=== PATIENT | female | born 1980 | race Caucasian/White ===

== ENCOUNTER → 2016-04-30 | Outpatient (REF) | payer OTHER ==
[~2016-04-30] MED LIST: ACET500C PO; IBUP600T26 PO; STUACAP PO
== END ==
LOC: M LAB REF 17:20
PROVIDERS: ATTEND Obstetrics & Gynecology
DX: Z12.4 Encounter for screening for malignant neoplasm of cervix (principal)

== ENCOUNTER 2016-10-17 09:58 | Emergency (ER) | payer MEDICAID, OTHER ==
[~2016-10-17] VITALS: Ht 157.5 cm; Wt 70.3 kg
[~2016-10-17 09:58] MED LIST changes: +IBUP-1022 PO; -IBUP600T26 PO
[2016-10-17] MEDS ORDERED: PROV100T25 PO (10:06)
[2016-10-17] MEDS ORDERED: KETOROLAC 60 MG/2 ML VIAL (J1885) IM ONE (11:00)
[2016-10-17] MEDS ORDERED: SKEL800T97 PO (11:25)
[2016-10-17 11:33] VITALS: BP 106/64
== END 2016-10-17 11:34 | disposition home or self-care (01) ==
LOC: M ED 10:48
DX: S23.3XXA Sprain of ligaments of thoracic spine, initial encounter (principal); F41.9 Anxiety disorder, unspecified; G47.419 Narcolepsy without cataplexy; E28.2 Polycystic ovarian syndrome; F17.210 Nicotine dependence, cigarettes, uncomplicated; X58.XXXA Exposure to other specified factors, initial encounter; Y92.89 Other specified places as the place of occurrence of the external cause; Y99.9 Unspecified external cause status; Y93.9 Activity, unspecified; Z79.899 Other long term (current) drug therapy
CPT/HCPCS: 96372; 99282; J1885

== ENCOUNTER 2016-12-31 20:57 | Emergency (ER) | payer MEDICAID ==
[~2016-12-31] VITALS: Ht 157.5 cm; Wt 68.2 kg
[2016-12-31 20:57] VITALS: BP 125/73
[~2016-12-31 20:57] MED LIST changes: +PROV100T25 PO; +SKEL800T97 PO
[2016-12-31] MEDS ORDERED: KEFL500C17 PO (23:29)
[2016-12-31] MEDS ORDERED: PYRI1TAB5 PO (23:29)
[2016-12-31] MEDS ORDERED: PHENAZOPYRIDINE 100 MG TAB PO ONE (23:30)
[2016-12-31] MEDS ORDERED: CEPHALEXIN 500 MG CAP PO ONE (23:30)
== END 2016-12-31 23:58 | disposition home or self-care (01) ==
LOC: M ED 20:57
DX: N39.0 Urinary tract infection, site not specified (principal); G89.29 Other chronic pain; M54.9 Dorsalgia, unspecified; F41.9 Anxiety disorder, unspecified; E28.2 Polycystic ovarian syndrome; G47.419 Narcolepsy without cataplexy; F17.210 Nicotine dependence, cigarettes, uncomplicated; Z79.899 Other long term (current) drug therapy; J30.9 Allergic rhinitis, unspecified

== ENCOUNTER → 2017-02-13 | Outpatient (REF) | payer MEDICAID ==
[~2017-02-13] MED LIST changes: +KEFL500C17 PO; +PYRI1TAB5 PO
== END ==
LOC: M LAB REF 21:40
PROVIDERS: ATTEND Physician Assistant
DX: R30.0 Dysuria (principal)

== ENCOUNTER 2017-08-10 21:32 | Emergency (ER) | payer MEDICAID ==
[2017-08-10] MEDS: IBUPROFEN 600 MG TAB PO (23:25)
[2017-08-10] MEDS: ALBUTEROL SULFATE 2.5 MG/0.5 ML INH NEB SOLN NEB (23:40)
[2017-08-11] MEDS ORDERED: LIDOCAINE 1% MDV 20ML VIAL As Ordered (00:20)
[2017-08-11] MEDS: cefTRIAXone SOD 1 GM VIAL (J0696) IM (00:29)
== END 2017-08-11 00:44 | disposition home or self-care (01) ==
LOC: M ED 08-11 00:44
DX: J18.9 Pneumonia, unspecified organism (principal); K21.9 Gastro-esophageal reflux disease without esophagitis; E28.2 Polycystic ovarian syndrome; J30.89 Other allergic rhinitis
CPT/HCPCS: J0696

== ENCOUNTER 2017-08-20 17:44 | Emergency (ER) | payer MEDICAID ==
[2017-08-20 18:17] LABS: BASO % 0.3 % (0.0-1.0); EOS % 0.1 % (0.0-3.0); HEMATOCRIT 43.7 % (36.0-47.0); HEMOGLOBIN 14.7 g/dl (12.0-15.5); IMMATURE GRANULOCYTE % 1.1 % (0-3.0); LYMPH # 2.2 10^3/uL (1.5-4.5); LYMPH % 14.2 % (24.0-44.0); MEAN CORPUSCULAR HEMOGLOBIN 29.8 pg (27.0-33.0); MEAN CORPUSCULAR HGB CONC 33.6 g/dl (32.0-36.5); MEAN CORPUSCULAR VOLUME 88.5 fl (80.0-96.0); MONO # 0.6 10^3/uL (0.0-0.8); MONO % 3.8 % (0.0-5.0); NEUTROPHILS # 12.2 10^3/uL (1.8-7.7); NEUTROPHILS % 80.5 % (36.0-66.0); PLATELET COUNT, AUTOMATED 429 10^3/uL (150-450); RED BLOOD COUNT 4.94 10^6/uL (4.00-5.40); RED CELL DISTRIBUTION WIDTH 12.7 % (11.5-14.5); WHITE BLOOD COUNT 15.2 10^3/uL (4.0-10.0)
[2017-08-20 18:35] LABS: KETONE, URINE AUTO RFX NEGATIVE (NEGATIVE); LEUKOCYTE ESTERASE UR AUTO RFX NEGATIVE (NEGATIVE); NITRITE, URINE AUTO RFX NEGATIVE (NEGATIVE); RBC, URINE AUTO RFX 2 /HPF (0-3); SPECIFIC GRAVITY UR AUTO RFX 1.003 (1.002-1.035); SQUAM EPITHELIAL CELL UR AURFX 0 /HPF (0-6); WBC, URINE AUTO RFX 0 /HPF (0-3)
[2017-08-20 19:05] LABS: ANION GAP 11 MEQ/L (8-16); BLOOD UREA NITROGEN 13 MG/DL (7-18); CALCIUM LEVEL 9.2 MG/DL (8.5-10.1); CARBON DIOXIDE LEVEL 25 MEQ/L (21-32); CHLORIDE LEVEL 107 MEQ/L (98-107); CREATININE FOR GFR 0.92 MG/DL (0.55-1.30); GLOMERULAR FILTRATION RATE > 60.0 (>60); GLUCOSE, FASTING 103 MG/DL (70-100); HCG, SERUM QUANTITATIVE < 1.0 MIU/ML; POTASSIUM SERUM 4.5 MEQ/L (3.5-5.1); SODIUM LEVEL 143 MEQ/L (136-145)
== END 2017-08-20 20:42 | disposition home or self-care (01) ==
LOC: M ED 17:44
DX: N92.0 Excessive and frequent menstruation with regular cycle (principal); J45.909 Unspecified asthma, uncomplicated; Z87.891 Personal history of nicotine dependence
CPT/HCPCS: 76801

== ENCOUNTER → 2017-09-21 | Outpatient (CLI) | payer MEDICAID | LOC: M RAD 09:31 | DX: N60.22 Fibroadenosis of left breast (principal); N60.21 Fibroadenosis of right breast | CPT/HCPCS: 77066 ==

== ENCOUNTER → 2017-12-10 | Outpatient (CLI) | payer MEDICAID ==
[2017-12-10 13:27] LABS: BASO % 0.2 % (0.0-1.0); EOS # 0.3 10^3/uL (0.0-0.50); EOS % 2.8 % (0.0-3.0); HEMATOCRIT 42.3 % (36.0-47.0); HEMOGLOBIN 13.9 g/dl (12.0-15.5); IMMATURE GRANULOCYTE % 1.2 % (0-3.0); LYMPH # 1.8 10^3/uL (1.5-4.5); LYMPH % 19.5 % (24.0-44.0); MEAN CORPUSCULAR HEMOGLOBIN 29.6 pg (27.0-33.0); MEAN CORPUSCULAR HGB CONC 32.9 g/dl (32.0-36.5); MONO # 0.6 10^3/uL (0.0-0.8); MONO % 6.5 % (0.0-5.0); NEUTROPHILS # 6.4 10^3/uL (1.8-7.7); NEUTROPHILS % 69.8 % (36.0-66.0); PLATELET COUNT, AUTOMATED 254 10^3/uL (150-450); RED CELL DISTRIBUTION WIDTH 13.2 % (11.5-14.5); WHITE BLOOD COUNT 9.1 10^3/uL (4.0-10.0)
[2017-12-10 14:54] LABS: HBsAg Prenatal NEGATIVE (NEGATIVE); HIV 1&2 SCREEN CENTAUR NEGATIVE (NEGATIVE); RUBELLA IgG QUALITATIVE IMMUNE (IMMUNE)
[2017-12-10 14:54] LABS: HEPATITIS C VIRUS ABY INDEX 0.1 INDEX (<0.8)
[2017-12-10 16:32] LABS: CHLAMYDIA DNA AMPLIFICATION NEGATIVE (NEGATIVE); GC DNA AMPLIFICATION NEGATIVE (NEGATIVE)
== END ==
LOC: M SMT 10:16
DX: Z34.81 Encounter for supervision of other normal pregnancy, first trimester (principal); Z3A.08 8 weeks gestation of pregnancy
CPT/HCPCS: 86762

== ENCOUNTER 2018-01-07 19:38 | Emergency (ER) | payer MEDICAID ==
[2018-01-07 21:13] LABS: BASO % 0.2 % (0.0-1.0); EOS # 0.2 10^3/uL (0.0-0.50); EOS % 1.9 % (0.0-3.0); HEMATOCRIT 38.4 % (36.0-47.0); HEMOGLOBIN 13.4 g/dl (12.0-15.5); IMMATURE GRANULOCYTE % 0.8 % (0-3.0); LYMPH # 1.9 10^3/uL (1.5-4.5); LYMPH % 17.1 % (24.0-44.0); MEAN CORPUSCULAR HEMOGLOBIN 30.1 pg (27.0-33.0); MEAN CORPUSCULAR HGB CONC 34.9 g/dl (32.0-36.5); MEAN CORPUSCULAR VOLUME 86.3 fl (80.0-96.0); MONO # 0.5 10^3/uL (0.0-0.8); MONO % 4.9 % (0.0-5.0); NEUTROPHILS # 8.2 10^3/uL (1.8-7.7); NEUTROPHILS % 75.1 % (36.0-66.0); PLATELET COUNT, AUTOMATED 254 10^3/uL (150-450); RED BLOOD COUNT 4.45 10^6/uL (4.00-5.40); RED CELL DISTRIBUTION WIDTH 13.2 % (11.5-14.5)
[2018-01-07 21:45] LABS: HCG, SERUM QUANTITATIVE 33874 MIU/ML
== END 2018-01-07 22:38 | disposition home or self-care (01) ==
LOC: M ED 19:38
DX: O20.0 Threatened abortion (principal); Z3A.12 12 weeks gestation of pregnancy; O99.331 Smoking (tobacco) complicating pregnancy, first trimester; F17.210 Nicotine dependence, cigarettes, uncomplicated; O99.511 Diseases of the respiratory system complicating pregnancy, first trimester; J30.89 Other allergic rhinitis
CPT/HCPCS: 76801

== ENCOUNTER → 2018-01-20 | Outpatient (CLI) | payer MEDICAID ==
[2018-01-20 14:03] LABS: CREATININE,RANDOM URINE 80.3 MG/DL
[2018-01-20 14:03] LABS: TOTAL PROTEIN,RANDOM URINE < 5.0 MG/DL (0.0-12.0)
[2018-01-20 17:50] LABS: HEMATOCRIT 41.6 % (36.0-47.0); HEMOGLOBIN 13.7 g/dl (12.0-15.5); MEAN CORPUSCULAR HEMOGLOBIN 29.6 pg (27.0-33.0); MEAN CORPUSCULAR HGB CONC 32.9 g/dl (32.0-36.5); MEAN CORPUSCULAR VOLUME 89.8 fl (80.0-96.0); PLATELET COUNT, AUTOMATED 272 10^3/uL (150-450); RED BLOOD COUNT 4.63 10^6/uL (4.00-5.40); RED CELL DISTRIBUTION WIDTH 13.5 % (11.5-14.5); WHITE BLOOD COUNT 12.2 10^3/uL (4.0-10.0)
[2018-01-20 17:51] LABS: ALT/SGPT 27 U/L (12-78); AST/SGOT 19 U/L (7-37); BILIRUBIN,TOTAL 0.3 MG/DL (0.2-1.0); CREATININE FOR GFR 0.58 MG/DL (0.55-1.30); GLOMERULAR FILTRATION RATE > 60.0 (>60); LDH LACTATE DEHYDROGENASE 171 U/L (84-246)
== END ==
LOC: M SMT 11:19
DX: O09.291 Supervision of pregnancy with other poor reproductive or obstetric history, first trimester (principal); Z3A.00 Weeks of gestation of pregnancy not specified
CPT/HCPCS: 84460

== ENCOUNTER 2018-02-19 16:01 | Emergency (ER) | payer MEDICAID | END 2018-02-19 18:26 | disposition home or self-care (01) | LOC: M ED 16:01 | DX: O99.89 Other specified diseases and conditions complicating pregnancy, childbirth and the puerperium (principal); M70.61 Trochanteric bursitis, right hip; K21.9 Gastro-esophageal reflux disease without esophagitis; G47.419 Narcolepsy without cataplexy; Z79.82 Long term (current) use of aspirin; J30.89 Other allergic rhinitis; F17.210 Nicotine dependence, cigarettes, uncomplicated; Z3A.19 19 weeks gestation of pregnancy | CPT/HCPCS: 99283 ==

== ENCOUNTER → 2018-02-22 | Outpatient (CLI) | payer MEDICAID | LOC: M RAD 09:50 | DX: Z34.82 Encounter for supervision of other normal pregnancy, second trimester (principal); Z36.89 Encounter for other specified antenatal screening; Z3A.19 19 weeks gestation of pregnancy | CPT/HCPCS: 76811 ==

== ENCOUNTER → 2018-02-24 | Outpatient (CLI) | payer MEDICAID ==
[2018-02-24 13:58] LABS: HEMATOCRIT 39.9 % (36.0-47.0); HEMOGLOBIN 13.1 g/dl (12.0-15.5); MEAN CORPUSCULAR HEMOGLOBIN 29.8 pg (27.0-33.0); MEAN CORPUSCULAR HGB CONC 32.8 g/dl (32.0-36.5); MEAN CORPUSCULAR VOLUME 90.9 fl (80.0-96.0); PLATELET COUNT, AUTOMATED 259 10^3/uL (150-450); RED BLOOD COUNT 4.39 10^6/uL (4.00-5.40); RED CELL DISTRIBUTION WIDTH 13.6 % (11.5-14.5)
[2018-02-24 14:20] LABS: ALBUMIN/GLOBULIN RATIO 0.88 (1.00-1.93); ALKALINE PHOSPHATASE 91 U/L (45-117); ALT/SGPT 20 U/L (12-78); AST/SGOT 13 U/L (7-37); BILIRUBIN,DIRECT < 0.1 MG/DL (0.0-0.2); BILIRUBIN,TOTAL 0.2 MG/DL (0.2-1.0); TOTAL PROTEIN 6.4 GM/DL (6.4-8.2)
[2018-02-27 00:06] LABS: ANTI PARVO VIRUS LEVEL IGG 7.5 index (0.0-0.8); ANTI PARVO VIRUS LEVEL IgM 0.2 index (0.0-0.8)
== END ==
LOC: M SMT 10:23
DX: O28.3 Abnormal ultrasonic finding on antenatal screening of mother (principal)
CPT/HCPCS: 80076

== ENCOUNTER → 2018-03-24 | Outpatient (CLI) | payer MEDICAID ==
[~2018-03-24] MED LIST changes: +ASPI81TA85 PO; +CEFD1CAP8 PO; +PRED20TA PO; +PRENTAB29 PO; +PROAAER10 INH; +ZITHTAB PO
[2018-03-24 13:20] LABS: ALT/SGPT 17 U/L (12-78); BILIRUBIN,TOTAL 0.3 MG/DL (0.2-1.0); CREATININE FOR GFR 0.57 MG/DL (0.55-1.30); GLOMERULAR FILTRATION RATE > 60.0 (>60); LDH LACTATE DEHYDROGENASE 154 U/L (84-246); URIC ACID 3.8 MG/DL (2.6-6.0)
[2018-03-24 13:42] LABS: TOTAL PROTEIN,RANDOM URINE 13.3 MG/DL (0.0-12.0)
== END ==
LOC: M SMT 11:02
PROVIDERS: ATTEND Obstetrics & Gynecology
DX: O16.2 Unspecified maternal hypertension, second trimester (principal)

== ENCOUNTER → 2018-04-21 | Outpatient (CLI) | payer MEDICAID ==
[2018-04-21 15:10] LABS: ALT/SGPT 17 U/L (12-78); BILIRUBIN,TOTAL 0.3 MG/DL (0.2-1.0); CREATININE FOR GFR 0.64 MG/DL (0.55-1.30); GLOMERULAR FILTRATION RATE > 60.0 (>60); URIC ACID 4.5 MG/DL (2.6-6.0)
[2018-04-21 15:20] LABS: TOTAL PROTEIN,RANDOM URINE 19.4 MG/DL (0.0-12.0)
[2018-04-21 15:22] LABS: LDH LACTATE DEHYDROGENASE 155 U/L (84-246)
== END ==
LOC: M SMT 11:07
PROVIDERS: ATTEND Advanced Practice Midwife
DX: O09.292 Supervision of pregnancy with other poor reproductive or obstetric history, second trimester (principal)

== ENCOUNTER → 2018-04-25 | Outpatient (CLI) | payer MEDICAID ==
[2018-04-25 13:26] LABS: HEMATOCRIT 37.2 % (36.0-47.0); HEMOGLOBIN 12.4 g/dl (12.0-15.5); MEAN CORPUSCULAR HEMOGLOBIN 29.7 pg (27.0-33.0); MEAN CORPUSCULAR HGB CONC 33.3 g/dl (32.0-36.5); MEAN CORPUSCULAR VOLUME 89.2 fl (80.0-96.0); PLATELET COUNT, AUTOMATED 241 10^3/uL (150-450); RED BLOOD COUNT 4.17 10^6/uL (4.00-5.40)
== END ==
LOC: M SMT 10:46
PROVIDERS: ATTEND Obstetrics & Gynecology
DX: O09.292 Supervision of pregnancy with other poor reproductive or obstetric history, second trimester (principal); Z3A.00 Weeks of gestation of pregnancy not specified

== ENCOUNTER → 2018-05-05 | Outpatient (CLI) | payer MEDICAID ==
--- NOTE | 2018-05-05 15:29 | REP ---
OB ULTRASOUND: Real-time sonographic evaluation of the gravid uterus is performed. There is a single living intrauterine gestation. The estimated gestational age is 29 weeks 4 days, EDC 07/17/2018. Today's measurements indicate appropriate growth. BPD 35 mm = 30 weeks 1 day, at the 58th percentile. HC 269 mm = 29 weeks 2 days, at the 44th percentile. AC 260 mm = 30 weeks 1 day, at the 59th percentile. Femur length 53 mm = 28 weeks 2 days, at the 21st percentile. HC/AC ratio 1.03 within normal range. Estimated weight 1400 gram, 39th percentile. heart rate 131 beats per minute. Amniotic fluid within normal limits. ALY 17.9 within normal range of 9.1 to 23.3. Biophysical profile score 8/8. SD ratio 3.23 and RI 0.69 within normal range. SEEN/GROSSLY UNREMARKABLE Lateral ventricles Yes Posterior fossa No Upper lip Yes Four-chamber heart No LVOT No RVOT No Stomach Yes Cord insertion Yes Three vessel cord Yes Kidneys Yes Bladder Yes Spine Yes position: Breech. Placenta: Posterior and fundal and grade 1 with no previa or abruption. Electronically Signed by Leonardo Núñez MD 05/05/2018 05:32 P
== END ==
LOC: M RAD 13:59
PROVIDERS: ATTEND Advanced Practice Midwife
DX: O09.293 Supervision of pregnancy with other poor reproductive or obstetric history, third trimester (principal)

== ENCOUNTER → 2018-05-17 | Outpatient (CLI) | payer MEDICAID ==
--- NOTE | 2018-05-17 12:20 | REP ---
Third trimester obstetric ultrasound for weekly biophysical profile: There is a single intrauterine gestation in a vertex presentation. The placenta is posterior. There is no placenta previa or abruptio. The placenta demonstrates grade 1 maturity. The heart rate is 145 beats per minute. The cervix measures 3.4 cm length. Amniotic fluid index is 20.9 (8.7 - 23.9). Gestational age by the first ultrasound during this gestation is 31 weeks 2 days/SUZANNE 07/17/2018. Gestational age by LMP is 31 weeks 2 days/SUZANNE 07/17/2018. biophysical profile: Breathing 2.0 Movement 2.0 Tone 2.0 AFV 2.0 Total 0.8 / 0.8 Umbilical artery Doppler assessment mid cord: S/D ratio 2.41 (2.30-3.30) Resistive Index 0.59 (0.59-0.75 Diastolic Velocity 1.35 (>10 cm/sec) Electronically Signed by Leonardo Padilla MD 05/17/2018 12:11 P
== END ==
LOC: M RAD 10:12
PROVIDERS: ATTEND Advanced Practice Midwife
DX: O09.293 Supervision of pregnancy with other poor reproductive or obstetric history, third trimester (principal)

== ENCOUNTER → 2018-05-24 | Outpatient (CLI) | payer MEDICAID ==
[~2018-05-24] MED LIST changes: +IBUP-1114 PO; +MAPA500T2 PO
--- NOTE | 2018-05-24 14:54 | REP ---
Clinical: Growth reevaluation. Comparison: 05/17/2018 . Findings: Examination demonstrates a single live intrauterine in breech presentation. motion is identified by technologist. Placenta is noted posterior and grade grade II without evidence for placenta previa or abruption. Amniotic fluid volume is normal. Cervix measures 3.7 cm in length and appears closed. No evidence for nuchal cord. Gestational age by LMP 32 weeks 2 days with SUZANNE 07/17/2018 . Gestational age by current measurements 32 weeks 5 days with SUZANNE 07/14/2018 . FHR equals 136 beats per minute. BPD 8.1 cm 32 weeks 4 days HC 99.8 cm 33 weeks 0 days AC 28.8 cm 32 weeks 6 days FL 6.2 cm 32 weeks 1 day HL 5.7 cm 33 weeks 0 days HC/AC ratio 1.03 Estimated weight 2010 grams ( 49th percentile). Amniotic fluid index: 20.3 cm Umbilical cord SD ratio: 2.54 Biophysical profile score: 8/8 Impression: Single live advanced gestation in breech presentation demonstrating appropriate interval growth. No gross abnormalities are identified. Electronically Signed by Kamlesh Noonan MD 05/24/2018 02:45 P
== END ==
LOC: M RAD 13:27
PROVIDERS: ATTEND Advanced Practice Midwife
DX: O09.293 Supervision of pregnancy with other poor reproductive or obstetric history, third trimester (principal); Z3A.32 32 weeks gestation of pregnancy

== ENCOUNTER 2018-06-01 03:57 | Inpatient (IN) | payer MEDICAID ==
[2018-06-01] VITALS (12 sets, daily range): BP systolic 99–139; BP diastolic 53–82
[~2018-06-01] VITALS: Ht 157.5 cm; Wt 89.0 kg
[~2018-06-01 03:57] MED LIST changes: -IBUP-1114 PO; -MAPA500T2 PO
[2018-06-01] MEDS ORDERED: LACTATED RINGER'S 1000 ML IV STA (05:08)
[2018-06-01] MEDS ORDERED: AZITHROMYCIN 250 MG TAB PO ONE (05:15)
--- NOTE | 2018-06-01 05:25 | NUR ---
L&D H&P HPI: 38 year old at 33+3 weeks estimated gestation. Expected date of confinement: 07/17/18. dated by LMP c/w first TM US. Presents today complaining of large loss of clear fluid around 0200 this AM. Denies vaginal bleeding or uterine contractions. Reports regular movement. course c/b : 1. History of stillborn at 35 weeks due to placental abruption/severe pre-eclampsia 2. GHTN 3. Smoker 4. Grand multiparity 5. AMA labs: Blood type A+, antibody screen negative, rubella immune, VDRL nonreactive , hepatitis B surface antigen negative, HIV negative, hepatitis C an tibody negative, GC/CT negative, aneuploidy/maternal serum screening: Panorama cfDNA Low risk XY, 1 hour glucose challenge test: 107, GBS unknown. Radiology/OB US: no anomalies or placental abnormalities detected. 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 No STI/gHSV OB history: x 6 Social history: 1/2 pack - pack/day. No drug use or EtOH Family history: DM , HTN, thyroid, Objective Vitals: Normotensive, normal heart rate, afebrile Heart: Regular rate and rhythm. No murmurs, rubs or gallops. Lungs: Clear to auscultation bilaterally. No wheezes, crackles, rales or rhonchi. Abdomen: Uterine fundal height consistent with dates. No guarding or rebound tenderness. Extremities: No clubbing, cyanosis or edema. Normal deep tendon reflexes. SSE: +pooling/grossly ruptured. +Nitrazine / +ferning Sterile vaginal exam: 2-3 cm, 50 %effacement, -3 station, cephalic US,molina: cephalic presentation confirmed External monitoring: heart rate category 1 Tocodynamometer: contractions not present Assessment/Plan 38 year old at 33+3 weeks gestation. Diagnosis: Premature Rupture of Membranes. No e/o IAI. Reassuring and maternal status. -Admit to labor and delivery - corticosteroids: Betamethasone 12mg IM q24h x 2 doses -Latency abx: Azithromycin 1g PO x 1, Ampicillin 2g IV q6h -Tocolysis PRN -External monitoring and tocodynamometer -GBS culture obtained; pending. -Timing of delivery: goal of 34+0 weeks. Deliver sooner for maternal or indications. Dr. Michael Serrato, DO, FACOG
[2018-06-01] MEDS: BETAMETHASONE SOLUSPAN 6MG/ML INJ 5ML (J0702) IM SCH (06:23)
[2018-06-01 06:25] LABS: HEMATOCRIT 36.9 % (36.0-47.0); HEMOGLOBIN 12.3 g/dl (12.0-15.5); MEAN CORPUSCULAR HEMOGLOBIN 30.1 pg (27.0-33.0); MEAN CORPUSCULAR HGB CONC 33.3 g/dl (32.0-36.5); MEAN CORPUSCULAR VOLUME 90.2 fl (80.0-96.0); PLATELET COUNT, AUTOMATED 209 10^3/uL (150-450); RED BLOOD COUNT 4.09 10^6/uL (4.00-5.40); WHITE BLOOD COUNT 10.1 10^3/uL (4.0-10.0)
[2018-06-01] MEDS: NIFEdipine 10 MG CAP PO SCH ×3 (08:04→16:00)
[2018-06-01] MEDS: AMPICILLIN SOD 2 GM in D5W MINI-BAG PLUS 100 ML IV SCH ×4 (11:30→23:10)
[2018-06-01] MEDS ORDERED: ACETAMINOPHEN 500 MG TAB PO PRN (16:30)
[2018-06-01] MEDS ORDERED: diphenhydrAMINE 50 MG CAP PO ONE (20:30)
[2018-06-02] VITALS (8 sets, daily range): BP systolic 96–129; BP diastolic 54–72
[2018-06-02] MEDS: BETAMETHASONE SOLUSPAN 6MG/ML INJ 5ML (J0702) IM SCH (05:34)
[2018-06-02] MEDS: AMPICILLIN SOD 2 GM in D5W MINI-BAG PLUS 100 ML IV SCH ×4 (05:34→23:59)
[2018-06-02] MEDS: diphenhydrAMINE 25 MG CAP PO PRN (23:59)
[2018-06-03] VITALS (21 sets, daily range): BP systolic 90–142; BP diastolic 50–76
[2018-06-03] MEDS: AMPICILLIN SOD 2 GM in D5W MINI-BAG PLUS 100 ML IV SCH ×4 (06:28→23:30)
[2018-06-03 06:58] LABS: HEMATOCRIT 29.7 % (36.0-47.0); HEMOGLOBIN 9.9 g/dl (12.0-15.5); MEAN CORPUSCULAR HEMOGLOBIN 30.6 pg (27.0-33.0); MEAN CORPUSCULAR HGB CONC 33.3 g/dl (32.0-36.5); MEAN CORPUSCULAR VOLUME 91.7 fl (80.0-96.0); PLATELET COUNT, AUTOMATED 198 10^3/uL (150-450); RED BLOOD COUNT 3.24 10^6/uL (4.00-5.40); WHITE BLOOD COUNT 10.3 10^3/uL (4.0-10.0)
--- NOTE | 2018-06-03 07:16 | NUR ---
HD#3 S: Doing well w/o complaints. Denies vaginal bleeding, ctx or abd pain O: vss, AF gen: well appearing abd: gravid, nttp A/P: 38 yo @ 33w5d with PPROM-stable s/p betamethasone - I reviewed risk and plan of care. All question answered Amparo Wahl MD
[2018-06-03] MEDS: LR 1,000 ML IV SCH ×2 (08:15→12:06)
[2018-06-03] MEDS ORDERED: CALCIUM CARBONATE 500 MG CHEW U/D PO PRN (14:15)
[2018-06-03] MEDS: FAMOTIDINE 20 MG TAB PO SCH ×2 (14:18→21:25)
[2018-06-03] MEDS: diphenhydrAMINE 25 MG CAP PO PRN (21:25)
[2018-06-04] VITALS (39 sets, daily range): BP systolic 93–151; BP diastolic 47–84
[2018-06-04] MEDS: LR 1,000 ML IV SCH ×2 (00:15→14:42)
[2018-06-04] MEDS: AMPICILLIN SOD 2 GM in D5W MINI-BAG PLUS 100 ML IV SCH (05:40)
--- NOTE | 2018-06-04 07:58 | NUR ---
Progress note S: Feels contractions every 10 minutes O: YZ=471/74 P=74 afebrile NAD Abd: NT, gravid FHt: Category I [place]: irregular cx: 2 cm/70%/-2 posterior moderate A/P 38 yo at 33 6/7 weeks with PPROM Pt has been on latency antibiotics Pt had multiple variable decelerations overnight, and appears to have contractions. Plan to move toward delivery today Stat Oxytocin Jacques Perez MD
[2018-06-04] MEDS ORDERED: OXYTOCIN DRIP 30 UNITS in APPROPRIATE DILUENT 1 EA IV SCH (08:00)
[2018-06-04] MEDS: FAMOTIDINE 20 MG TAB PO SCH (08:58)
[2018-06-04] MEDS ORDERED: FENTANYL 2MCG/ML ROPIVACAINE 0.2% IN 0.9% NACL 100ML IVBAG As Ordered ONE (12:18)
[2018-06-04] MEDS ORDERED: EPIDURAL/PCA KEYS XX PRN (13:15)
[2018-06-04] MEDS ORDERED: ePHEDrine SULFATE 25 MG/5 ML(5MG/ML) SYRINGE IV PRN (13:15)
[2018-06-04] MEDS ORDERED: diphenhydrAMINE INJ 50MG/ML VIAL (J1200) IV PRN (13:15)
[2018-06-04] MEDS ORDERED: REFRIGERATOR IV KEYS XX PRN (13:15)
[2018-06-04] MEDS ORDERED: EPIDURAL COMMENT XX SCH (13:15)
[2018-06-04] MEDS ORDERED: FENTANYL/ROPIVACAINE/NACL BAG 100 ML EPIDURAL SCH (13:15)
[2018-06-04] MEDS ORDERED: ONDANSETRON 4MG/2ML VIAL (J2405) IV PRN ×2 (13:15→18:15)
[2018-06-04] MEDS ORDERED: NALOXONE INJ 0.4 MG/1 ML VIAL (J2310) IV PRN (13:15)
[2018-06-04] MEDS ORDERED: LACTATED RINGER'S 1000 ML IV PRN (13:15)
[2018-06-04 18:14] LABS: CORD GAS ABE V -1.6; CORD GAS HCO3 V 22.1 MEQ/L; CORD GAS O2 SAT V 74.7 %; CORD GAS PCO2 V 34.8 mmHg; CORD GAS PH V 7.421 UNITS; CORD GAS PO2 V 29.5 mmHg; CORD GAS SBC V 22.6 MEQ/L; CORD GAS TCO2 V 23.2 MEQ/L
[2018-06-04] MEDS ORDERED: DIBUCAINE 1% OINTMENT 30GM TOP PRN (18:15)
[2018-06-04] MEDS ORDERED: RHOGAM 300 MCG (1500 IU) INJ (J2790) IM SCH (18:15)
[2018-06-04] MEDS ORDERED: METHYLERGONOVINE MALEATE 0.2 MG TAB PO PRN (18:15)
[2018-06-04] MEDS ORDERED: MEASLES,MUMPS,RUBELLA VACCINE INJ (MMR-II) (90707) SC SCH (18:15)
[2018-06-04] MEDS ORDERED: DOCUSATE SODIUM 100 MG CAP PO PRN (18:15)
[2018-06-04] MEDS ORDERED: OXYTOCIN DRIP 30 UNITS in APPROPRIATE DILUENT 1 EA IV ONE (18:15)
[2018-06-04] MEDS ORDERED: ACETAMINOPHEN 500 MG TAB PO PRN (18:15)
[2018-06-04] MEDS ORDERED: IBUPROFEN 800 MG TAB PO PRN (18:15)
[2018-06-04 18:16] LABS: CORD GAS ABE A -1.7; CORD GAS HCO3 A 22.9 MEQ/L; CORD GAS O2 SAT A 61.9 %; CORD GAS PCO2 A 38.8 mmHg; CORD GAS PH A 7.389 UNITS; CORD GAS PO2 A 24.1 mmHg; CORD GAS SBC A 22.1 MEQ/L; CORD GAS TCO2 A 24.1 MEQ/L
[2018-06-05 06:00] VITALS: BP 95/49
[2018-06-05] MEDS: PRENATAL VITAMINS CHEWABLE TABLET PO SCH (11:13)
[2018-06-05 18:36] VITALS: BP 122/69
[2018-06-06] MEDS: PRENATAL VITAMINS CHEWABLE TABLET PO SCH (08:47)
[2018-06-06 09:00] VITALS: BP 121/72
[2018-06-06] MEDS ORDERED: MAPA500T2 PO (10:18)
[2018-06-06] MEDS ORDERED: IBUP-1114 PO (10:18)
--- NOTE | 2018-06-06 14:25 | DN ---
DATE OF DELIVERY: 06/04/2018 PREDELIVERY DIAGNOSIS: 33 and 6/7 weeks gestation, premature rupture of membranes (PPROM), induction. POST DELIVERY DIAGNOSIS: Delivered. PROCEDURE: Spontaneous vaginal delivery. ASSISTED LIVING EXECUTIVE DIRECTOR: Dr. Jacques Perez ANESTHESIA: Epidural. ESTIMATED BLOOD LOSS: 100 mL. FINDINGS: 4 pound 12 ounce male infant, Apgars 8 and 9. DELIVERY SUMMARY: After a second stage consisting of 1 contraction, the patient had spontaneous delivery of a 4 pound 12 ounce male infant, Apgars 8 and 9, under epidural anesthesia. Arterial blood gas was 7.38, excess -1.7, venous blood gas 7.42, base excess -1.6. The cried and was handed to the mother. The cord was doubly clamped and cut. The placenta delivered spontaneously and appeared to be intact. There were no vaginal lacerations present. The patient received IV Pitocin immediately after delivery of the placenta. Sponge counts were correct.
== END 2018-06-06 12:25 | disposition home or self-care (01) | DRG 560 ==
LOC: M LDO 03:57 → M LDI 05:39 → M OBS 06-04 20:31
PROVIDERS: ADMIT Obstetrics & Gynecology; ATTEND Obstetrics & Gynecology
PROC: 10E0XZZ Delivery of Products of Conception, External Approach (ICD-10-PCS; principal; 2018-06-04)
DX: O42.013 Preterm premature rupture of membranes, onset of labor within 24 hours of rupture, third trimester (principal); O13.4 Gestational [pregnancy-induced] hypertension without significant proteinuria, complicating childbirth; Z37.0 Single live birth; Z3A.33 33 weeks gestation of pregnancy; F17.200 Nicotine dependence, unspecified, uncomplicated; O99.334 Smoking (tobacco) complicating childbirth; O09.523 Supervision of elderly multigravida, third trimester

== ENCOUNTER 2019-01-07 16:33 | Emergency (ER) | payer MEDICAID ==
[~2019-01-07] VITALS: Ht 157.5 cm; Wt 75.1 kg
[~2019-01-07 16:33] MED LIST changes: +IBUP-1114 PO; +MAPA500T2 PO
[2019-01-07 16:34] VITALS: BP 116/60
[2019-01-07] MEDS ORDERED: PROV100T25 PO (17:09)
[2019-01-07] MEDS ORDERED: MACR100C43 PO (17:41)
[2019-01-07] MEDS ORDERED: NITROFURANTOIN (MACROBID) 100 MG CAP PO ONE (17:45)
== END 2019-01-07 18:04 | disposition home or self-care (01) ==
LOC: M ED 16:33
DX: N30.00 Acute cystitis without hematuria (principal); J02.9 Acute pharyngitis, unspecified; G47.29 Other circadian rhythm sleep disorder; F17.200 Nicotine dependence, unspecified, uncomplicated; Z79.899 Other long term (current) drug therapy; Z91.09 Other allergy status, other than to drugs and biological substances; Z87.440 Personal history of urinary (tract) infections

== ENCOUNTER → 2019-03-02 | Outpatient (REF) | payer MEDICAID ==
[~2019-03-02] MED LIST changes: +MACR100C43 PO
[2019-03-02 18:07] LABS: INFLUENZA A AMPLIFICATION NEGATIVE (NEGATIVE); INFLUENZA B AMPLIFICATION NEGATIVE (NEGATIVE)
== END ==
LOC: M LAB REF 16:22
PROVIDERS: ATTEND Physician Assistant
DX: R50.9 Fever, unspecified (principal); M79.10 Myalgia, unspecified site

== ENCOUNTER → 2019-03-26 | Outpatient (REF) | payer MEDICAID | LOC: M LAB REF 13:40 | PROVIDERS: ATTEND Physician Assistant Medical | DX: R30.0 Dysuria (principal) ==

== ENCOUNTER → 2019-06-02 | Outpatient (CLI) | payer MEDICAID ==
[2019-06-02 13:33] LABS: HEMATOCRIT 39.4 % (36.0-47.0); HEMOGLOBIN 12.9 g/dl (12.0-15.5); MEAN CORPUSCULAR HEMOGLOBIN 29.5 pg (27.0-33.0); MEAN CORPUSCULAR HGB CONC 32.7 g/dl (32.0-36.5); MEAN CORPUSCULAR VOLUME 90.2 fl (80.0-96.0); PLATELET COUNT, AUTOMATED 270 10^3/uL (150-450); RED BLOOD COUNT 4.37 10^6/uL (4.00-5.40); WHITE BLOOD COUNT 9.4 10^3/uL (4.0-10.0)
[2019-06-02 13:42] LABS: ALT/SGPT 30 U/L (12-78); BILIRUBIN,TOTAL 0.6 MG/DL (0.2-1.0); CREATININE FOR GFR 0.59 MG/DL (0.55-1.30); GLOMERULAR FILTRATION RATE > 60.0 (>60); LDH LACTATE DEHYDROGENASE 146 U/L (84-246); URIC ACID 4.1 MG/DL (2.6-6.0)
[2019-06-02 13:55] LABS: HEPATITIS B SURFACE ANTIGEN NEGATIVE (NEGATIVE); RUBELLA IgG QUALITATIVE IMMUNE (IMMUNE)
[2019-06-02 14:23] LABS: HEPATITIS C VIRUS ABY INDEX < 0.0 INDEX (<0.8)
[2019-06-02 14:24] LABS: HIV 1&2 SCREEN CENTAUR NEGATIVE (NEGATIVE)
[2019-06-02 15:25] LABS: CHLAMYDIA DNA AMPLIFICATION NEGATIVE (NEGATIVE); GC DNA AMPLIFICATION NEGATIVE (NEGATIVE)
== END ==
LOC: M LABDRWAD 09:40
PROVIDERS: ATTEND Advanced Practice Midwife
DX: O09.521 Supervision of elderly multigravida, first trimester (principal); Z3A.00 Weeks of gestation of pregnancy not specified

== ENCOUNTER → 2019-06-21 | Outpatient (CLI) | payer MEDICAID | LOC: M WHC 10:19 | PROVIDERS: ATTEND Obstetrics & Gynecology | DX: O09.529 Supervision of elderly multigravida, unspecified trimester (principal); Z53.9 Procedure and treatment not carried out, unspecified reason ==

== ENCOUNTER → 2019-08-01 | Outpatient (CLI) | payer MEDICAID ==
--- NOTE | 2019-08-01 10:26 | REP ---
REASON FOR EXAM: anatomy. Multiple ultrasonographic images of the gravid uterus show a single living intrauterine gestation in variable positions. Doppler interrogation of the heart shows the heart rate of 140 beats per minute. The placenta is posterior and not low lying. The subjective amniotic fluid volume is within normal limits. The cervix measures 3.4 cm in length and is closed. BPD 4.5 cm = 19 weeks 4 days HC 16.9 cm = 19 weeks 4 days AC 13.4 cm = 18 weeks 6 days FL 3.0 cm = 19 weeks 1 day The estimated weight is 271 grams, which is at the 16th percentile for 20- -week-0-day gestational age. The anatomic structures visualized and unremarkable are as follows: Thalami, cavum septum pellucidum, cerebellum, spine, urinary bladder, cord insertion, stomach, four-chamber heart, left ventricular outflow tract, and upper lip. Structures suboptimally visualized were as follows. Only one kidneys was well imaged, the cerebral ventricles were seen to be mildly dilated. Three-vessel umbilical cord cannot be confirmed. IMPRESSION: Single living intrauterine gestation as described above with an estimated gestational age of 19 weeks 1 day via composite criteria and an estimated date of delivery of 12/25/2019. Followup is recommended to visualize both kidneys, re-evaluate the cerebral ventricles, and confirm a three-vessel umbilical cord.
== END ==
LOC: M WHC 08:05
PROVIDERS: ATTEND Obstetrics & Gynecology
DX: O09.529 Supervision of elderly multigravida, unspecified trimester (principal)

== ENCOUNTER → 2019-08-18 | Outpatient (CLI) | payer MEDICAID ==
--- NOTE | 2019-08-18 14:12 | REP ---
OB ULTRASOUND: Real-time sonographic evaluation of the gravid uterus performed and compared to prior studies. There is a single intrauterine gestation. The estimated gestational age is 22 weeks 3 days, EDC 12/19/2019. Today's measurements indicate appropriate growth. Biometry and Growth: BPD 54 mm = 22 weeks 2 days, 47th percentile HC 198 mm = 22 weeks 0 days, 37th percentile AC 170 mm = 22 weeks 0 days, 40th percentile FL 37 mm = 20 weeks 5 days, 34th percentile HC/AC ratio 1.17 within normal range 1.04 to 1.23 Estimated weight 459 grams 30th percentile. Choroid plexus is visualized. There is a questionable separation within the left choroid plexus possibly indicating a bifid choroid plexus. Lateral ventricles are not dilated. Upper lip, stomach, cord insertion, three-vessel cord, kidneys and bladder are visualized and are grossly unremarkable. Cervical length: Closed and measures 2.7 cm in length. heart rate: 157 beats per minute. position: Variable Placenta: Posterior and grade 1 with no previa or abruption. Amniotic fluid: Within normal limits.
== END ==
LOC: M WHC 10:49
PROVIDERS: ATTEND Advanced Practice Midwife
DX: O09.522 Supervision of elderly multigravida, second trimester (principal); Z3A.22 22 weeks gestation of pregnancy

== ENCOUNTER 2019-08-28 21:58 | Outpatient (CLI) | payer MEDICAID ==
[~2019-08-28] VITALS: Ht 157.5 cm; Wt 81.7 kg
[2019-08-28] MEDS ORDERED: ASPI81TA85 PO (22:11)
[2019-08-28 22:26] VITALS: BP 119/63
--- NOTE | 2019-08-29 12:40 | HPE ---
DATE OF SERVICE: 08/28/2019 Katerin is a 39-year-old 8, para 5-2-0-6, at 23-6/7 weeks' gestation with estimated date of confinement (EDC) of 12/19/2019 based on last menstrual period and confirmed by first-trimester ultrasound. She presents to labor and delivery today with report of pelvic pressure. She denies contractions, vaginal bleeding, and leakage of fluid. The fetus has been active. care was [facility] at [facility] in the first trimester. course complicated by advanced maternal age, smoking throughout , a history of preeclampsia with intrauterine (IUFD), history of premature rupture of membranes (PPROM) at 33 weeks. OBSTETRIC HISTORY: 02/14/1999: 41 weeks' gestation, 7 pound 9 ounce female, vaginal delivery complicated by anemia. August 2000: 40 weeks, 5 pound 10 ounce male, spontaneous vaginal delivery complicated by oligohydramnios. June 2005: 36-3/7 weeks, spontaneous vaginal delivery uncomplicated delivery. September 2006: 39 weeks, 6 pound 9 ounce male, vaginal delivery, no complications. June 2010: 40 weeks, 8 pound 2 ounce male, spontaneous vaginal delivery, no complications. December 2015: 35-3/7 weeks' gestation, 3 pound 8 ounce male, intrauterine demise, preeclampsia, placental abruption. May 2018: 33 weeks and 6 days, 4 pound 12 ounce male, spontaneous vaginal delivery, premature rupture of membranes, gestational hypertension. OBSTETRIC LABORATORIES: A+, antibody screen negative, rapid plasma reagin (RPR) negative, hepatitis B surface antigen negative, hepatitis C antibody nonreactive, HIV nonreactive, gonorrhea and chlamydia negative. PAST MEDICAL HISTORY: Narcolepsy, low back pain, neck pain, anxiety, esophageal reflux. SURGERIES: Cholecystectomy. FAMILY HISTORY: Diabetes, heart attack, esophageal cancer, and hypertension. SOCIAL HISTORY: The patient is . She is a smoker, approximately ten cigarettes per day. She denies alcohol and drug use. No history of sexually-transmitted infections. She denies history of abuse: physical, sexual, and emotional. ALLERGIES: No known drug allergies. CURRENT MEDICATIONS: - vitamin OBJECTIVE: Temperature 97.9, pulse 89, respiration 18, blood pressure (BP) 119/63. Alert and oriented times three. She is in no apparent distress. heart rate is 140 with appropriate for gestational age. No pattern of contractions. Sterile speculum examination: Cervix is long, thick, closed, no bleeding noted. Sterile vaginal examination: Long, thick, and closed. ASSESSMENT: Intrauterine at 23-6/7 weeks. heart rate appropriate for gestational age. Normal discomforts of . Not in labor. PLAN: Discharge the patient home. She is to keep her next scheduled appointment at [facility] on 09/07/[facility]. I did review signs and symptoms of active labor, danger signs, and access to care. The patient has had all of her questions answered and is reassured by this visit today.
== END 2019-08-28 22:55 | disposition home or self-care (01) ==
LOC: EEVIPCON 21:58 → M LDO 21:58
PROVIDERS: ATTEND Advanced Practice Midwife

== ENCOUNTER → 2019-09-15 | Outpatient (CLI) | payer MEDICAID ==
[~2019-09-15] MED LIST changes: -ASPI81TA85 PO; +ASPI81TA86 PO; +DOCU100C16 PO; +IBUP80TA PO; +PERCOCET PO; +PNV1TAB6 PO
--- NOTE | 2019-09-15 14:51 | REP ---
OBSTETRIC SONOGRAPHY: HISTORY: Limited OB sonography. Check cervical length. Comparison study August 18, 2019. FINDINGS: Scanning demonstrates a viable single intrauterine gestation in a cephalic lie. motion is observed and heart rate is recorded at 142 beats per minute. A posterior grade 1 placenta is seen without evidence of previa or abruption. Amniotic fluid is subjectively normal. ALY is normal at 15.5 cm. Closed cervical length visualized transvaginally at 2.9 cm. There is a small 1.8 cm heterogeneous area in the lower uterine segment visualized transvaginally. Question small fibroid.
== END ==
LOC: M WHC 09:24
PROVIDERS: ATTEND Advanced Practice Midwife
DX: O09.292 Supervision of pregnancy with other poor reproductive or obstetric history, second trimester (principal)

== ENCOUNTER → 2019-09-26 | Outpatient (REF) | payer MEDICAID ==
[~2019-09-26] MED LIST changes: +ASPI81TA85 PO; -ASPI81TA86 PO; -DOCU100C16 PO; -IBUP80TA PO; -PERCOCET PO; -PNV1TAB6 PO
[2019-09-26 13:33] LABS: HEMATOCRIT 36.8 % (36.0-47.0); HEMOGLOBIN 12.2 g/dl (12.0-15.5); MEAN CORPUSCULAR HEMOGLOBIN 30.5 pg (27.0-33.0); MEAN CORPUSCULAR HGB CONC 33.2 g/dl (32.0-36.5); PLATELET COUNT, AUTOMATED 265 10^3/uL (150-450); WHITE BLOOD COUNT 11.7 10^3/uL (4.0-10.0)
== END ==
LOC: M PLALAB 08:57
PROVIDERS: ATTEND Advanced Practice Midwife
DX: O09.522 Supervision of elderly multigravida, second trimester (principal)

== ENCOUNTER → 2019-10-05 | Outpatient (CLI) | payer MEDICAID ==
[~2019-10-05] MED LIST changes: -ASPI81TA85 PO; +ASPI81TA86 PO; +DOCU100C16 PO; +IBUP80TA PO; +PERCOCET PO; +PNV1TAB6 PO
--- NOTE | 2019-10-05 11:12 | REP ---
OB ULTRASOUND BIOPHYSICAL PROFILE: Real-time sonographic evaluation of the gravid uterus is performed. There is a single living intrauterine gestation. The estimated gestational age is 29 weeks 2 days, EDC 12/19/2019. Cervix is closed and measures 3.6 cm in length. heart rate 147 beats per minute. Amniotic fluid within normal limits, ALY 12.7, normal range 9.1 to 23.2. Biophysical profile score 8/8. position is vertex. Placenta fundal and grade 1 with no previa or abruption. S/D ratio of the umbilical artery 3.0.
== END ==
LOC: M WHC 08:54
PROVIDERS: ATTEND Specialist
DX: O16.3 Unspecified maternal hypertension, third trimester (principal); Z3A.29 29 weeks gestation of pregnancy

== ENCOUNTER → 2019-10-12 | Outpatient (CLI) | payer MEDICAID ==
--- NOTE | 2019-10-12 11:57 | REP ---
REASON FOR EXAM: Hypertension. Obtain biophysical profile. Multiple ultrasonographic images of the gravid uterus show a single living intrauterine gestation in the transverse head to the maternal left position. Doppler interrogation of the heart shows a heart rate of 156 beats per minute. The cervix measures 3 cm in length and is closed. The placenta is fundal and not low-lying. The subjective amniotic fluid volume is within normal limits. The calculated amniotic fluid index is 14.3 with an expected range 8.9 to 23.5. biophysical profile score is 2 for breathing, 2 for movement, 2 for tone, and 2 for amniotic fluid volume giving a some total of 8/8. Doppler interrogation of the umbilical artery shows an A/B ratio of 2.6. This is within the normal range. IMPRESSION: Limited OB ultrasound as described above.
== END ==
LOC: M WHC 10:24
PROVIDERS: ATTEND Specialist
DX: O16.3 Unspecified maternal hypertension, third trimester (principal); Z3A.00 Weeks of gestation of pregnancy not specified

== ENCOUNTER → 2019-10-19 | Outpatient (CLI) | payer MEDICAID | LOC: M WHC 09:02 | PROVIDERS: ATTEND Specialist | DX: O16.3 Unspecified maternal hypertension, third trimester (principal); Z3A.00 Weeks of gestation of pregnancy not specified ==

== ENCOUNTER → 2019-10-27 | Outpatient (CLI) | payer MEDICAID ==
--- NOTE | 2019-12-15 13:12 | REP ---
ULTRASOUND FOR BIOPHYSICAL PROFILE IN A PATIENT WITH GESTATIONAL HYPERTENSION Delay in reporting results from hospital computer malfunction as result of a malware attack. FINDINGS: There is a single intrauterine gestation in a cephalic presentation. The placenta is posterior with grade 1 maturity without previa and without abruptio. BIOPHYSICAL PROFILE: motion 2.0, breathing 2.0, tone 2.0, amniotic fluid 2.0. Total BPP score 8/8. heart rate is 140 beats per minute. Cervix measures 3.1 cm in length. The patients estimated date of confinement (EDC) is reportedly 12/19/2019. No further evaluation is requested or performed at this time. [facility]
== END ==
LOC: M WHC 12:32
PROVIDERS: ATTEND Specialist
DX: O16.3 Unspecified maternal hypertension, third trimester (principal)

== ENCOUNTER → 2019-11-01 | Outpatient (CLI) | payer MEDICAID ==
--- NOTE | 2019-12-21 10:38 | REP ---
LIMITED OBSTETRIC SONOGRAPHY HISTORY: Hypertension. History of demise. For biophysical profile. This report was delayed due to a protracted episode of network disruption experienced by this facility. FINDINGS: Scanning through the gravid uterus demonstrates a single living intrauterine cephalic fetus. Placenta is posterior grade 2 without evidence of placenta previa or abruption. Amniotic fluid is subjectively normal. ALY is normal at 14.9 cm. heart rate is recorded at 152 beats per minute. Closed cervical length is measured transabdominally at 3.1 cm. biophysical profile score is 8 out of a possible 8. S/D ratio in the umbilical artery by Doppler is normal at 2.3. Sagittal images of the spine: Left-sided stomach, kidneys and bladder, three-vessel cord, abdominal wall cord insertion, and facial structures are seen and are unremarkable. MTDD
== END ==
LOC: M WHC 17:00
PROVIDERS: ATTEND Specialist
DX: O16.3 Unspecified maternal hypertension, third trimester (principal); Z3A.00 Weeks of gestation of pregnancy not specified

== ENCOUNTER → 2019-11-08 | Outpatient (CLI) | payer MEDICAID ==
--- NOTE | 2019-12-21 10:36 | REP ---
OB ULTRASOUND INDICATION: Gestational hypertension. TECHNIQUE: Real time sonographic evaluation of gravid uterus performed. FINDINGS: There is a single intrauterine gestation. The estimated gestational age is 34 weeks, 1 day, EDC 12/19/2019. Today's measurements indicate less than expected growth. BPD = 81 mm = 32 weeks, 4 days = 9th percentile. HC = 295 mm 32 weeks, 4 days = less than 2nd percentile. AC = 288 mm = 32 weeks, 6 days = 19th percentile. FL = 60 mm = 31 weeks, 2 days = less than 2nd percentile. Estimated weight 1943 grams is at the 7th percentile. heart rate is 143 beats per minute. Amniotic fluid appears within normal limits. ALY is 14.45. S/D ratio of umbilical artery is 2.2. Biphasic profile score is 8/8. Cervix is closed, measured 3.0 in length. position is vertex. Placenta is posterior and grade 2. MTDD
== END ==
LOC: M WHC 16:47
PROVIDERS: ATTEND Specialist
DX: O16.3 Unspecified maternal hypertension, third trimester (principal); Z3A.34 34 weeks gestation of pregnancy

== ENCOUNTER → 2019-11-15 | Outpatient (CLI) | payer MEDICAID ==
--- NOTE | 2019-12-21 10:41 | REP ---
OBSTETRIC SONOGRAPHY HISTORY: Limited obstetric sonography for biophysical profile. IUGR. History of prior stillborn. FINDINGS: Scanning through the gravid uterus demonstrates a viable single intrauterine gestation in a cephalic lie. Posterior grade 1 placenta is seen without evidence of previa or abruptions. Amniotic fluid is subjectively normal. ALY is normal at 16.3 cm. Biophysical profile score is 8 out of a possible 8. S/D ratio in the umbilical cord artery by Doppler is normal at 2.4. heart rate is recorded at 147 beats per minute. MTDD
== END ==
LOC: M WHC 14:24
PROVIDERS: ATTEND Obstetrics & Gynecology
DX: O09.299 Supervision of pregnancy with other poor reproductive or obstetric history, unspecified trimester (principal); Z3A.00 Weeks of gestation of pregnancy not specified

== ENCOUNTER → 2019-11-17 | Outpatient (CLI) | payer MEDICAID ==
--- NOTE | 2019-12-26 09:38 | REP ---
OBSTETRIC ULTRASOUND FOR BIOPHYSICAL PROFILE AND UMBILICAL CORD DOPPLER ASSESSMENT Delay in reporting results from hospital computer system malfunction from malware/ ransomware. FINDINGS: There is a single intrauterine gestation in a cephalic presentation. The placenta is posterior, grade 2, without previa and without abruptio. heart rate is 135 beats per minute. The amniotic fluid volume subjectively is normal. The amniotic fluid index is 15.67. BIOPHYSICAL PROFILE: motion 2 breathing 2 tone 2 Amniotic fluid volume 2 Total BPP 8/8 The cervix measures 3.4 cm in length. The Doppler S/D ratio of the umbilical artery is 2.6. The resistive index is 0.62. No further evaluation is requested or performed at this time. [facility]
== END ==
LOC: M WHC 10:54
PROVIDERS: ATTEND Obstetrics & Gynecology
DX: Z34.80 Encounter for supervision of other normal pregnancy, unspecified trimester (principal)

== ENCOUNTER → 2019-11-20 | Outpatient (CLI) | payer MEDICAID ==
--- NOTE | 2019-12-21 10:42 | REP ---
LIMITED OBSTETRICAL ULTRASOUND: HISTORY: well being. COMPARISON: 11/17/19 TECHNIQUE: Transabdominal obstetrical ultrasound with color Doppler evaluation. FINDINGS: Ultrasound examination demonstrates a single live advanced gestation in cephalic presentation. motion was identified by technologist. The cervix measures 3.1 cm in length and appears closed. The placenta is identified posteriorly, grade 2 and without placenta previa or abruption. Amniotic fluid volume is normal. Gestational age by current measurements is 33 weeks 5 days. heart rate is 144 beats per minute. Estimated weight is 2269 grams (7th percentile). ALY is 15.4 cm. Biophysical profile score is 8/8. IMPRESSION: Single live advanced gestation in cephalic presentation. Decreased estimated weight at 7th percentile. Biophysical profile score equals 8/8. MTDD
== END ==
LOC: M WHC 08:55
PROVIDERS: ATTEND Obstetrics & Gynecology
DX: Z34.82 Encounter for supervision of other normal pregnancy, second trimester (principal)

== ENCOUNTER → 2019-11-22 | Outpatient (REF) | payer MEDICAID | LOC: M WHC 13:00 | PROVIDERS: ATTEND Obstetrics & Gynecology | DX: O09.513 Supervision of elderly primigravida, third trimester (principal); Z3A.00 Weeks of gestation of pregnancy not specified ==

== ENCOUNTER → 2019-11-24 | Outpatient (CLI) | payer MEDICAID ==
--- NOTE | 2019-12-25 09:16 | REP ---
LIMITED OB ULTRASOUND: OBTAIN BIOPHYSICAL PROFILE FINDINGS: Multiple ultrasonographic images of the gravid uterus show a single living intrauterine gestation in the cephalic presentation. The placenta is posterior and not low lying. Doppler interrogation of the heart shows a heart rate of 138 beats per minute. Doppler interrogation of the umbilical artery shows an A/B ratio of 2.5. The subjective amniotic fluid volume is within normal limits. The calculated amniotic fluid index is 17.3, which is within the normal range. biophysical profile scores: motion 2 breathing 2 tone 2 Amniotic fluid volume 2 Total 11/03 IMPRESSION: Limited obstetric ultrasound as described above. MTDD
== END ==
LOC: M WHC 08:31
PROVIDERS: ATTEND Obstetrics & Gynecology
DX: O09.299 Supervision of pregnancy with other poor reproductive or obstetric history, unspecified trimester (principal); Z3A.00 Weeks of gestation of pregnancy not specified

== ENCOUNTER 2019-11-27 16:33 | Inpatient (IN) | payer MEDICAID ==
[~2019-11-27] VITALS: Ht 157.5 cm; Wt 80.2 kg
[~2019-11-27 16:33] MED LIST changes: -DOCU100C16 PO; -IBUP80TA PO; -PERCOCET PO; -PNV1TAB6 PO
[2019-11-27 16:57] VITALS: BP 117/70
[2019-11-27] MEDS ORDERED: PNV1TAB6 PO (17:05)
[2019-11-27] MEDS ORDERED: LR 1,000 ML IV SCH ×2 (17:29→23:45)
[2019-11-27] MEDS ORDERED: LACTATED RINGER'S 1000 ML IV STA (17:29)
[2019-11-27 17:38] VITALS: BP 115/63
--- NOTE | 2019-11-27 17:38 | HPEPDOC ---
Obstetrical History & Physical General Date of Admission Nov 27, 2019 at 17:18 Primary Care Physician: MARTINEZ JEAN CNM History of Present Illness Katerin is a 39-year-old female who is a at 36.6 weeks gestation with an SUZANNE of 12/19/19 based off of her LMP and consistent with her first trimester ultrasound. She initiated care in her first trimester with [facility]. Her has been complicated by being advanced maternal age, history of labor, narcolepsy, history of stillbirth at 35 weeks due to placental abruption, patient being a smoker, preeclampsia, and recently diagnosed IUGR with growth in the 7%. She presents to L&D with complaints of leaking of clear fluid that started at 1530 today. She reports some scant bloody show that is pink/brown and active movements. Chief Complaint: LOF, pre-term Information Provided By: Patient Age: 39 : 8 Term: 4 Pre-term: 3 Abortions: 0 Livin Care Care: Good Care Dating Final EDC: Dec 19, 2019 Final EDC by: LMP LMP: Mar 14, 2019 EGA at Admission: 36.6 Antepartum Course Diagnos(e)s IUGR AMA PROM Smoker History of preeclampsia History of stillbirth-placental abruption History of delivery Height (inches): 62 Pre- weight (lbs.): 167 Admission Weight (lbs.): 176 Change in Weight (lbs.): 9 Past Medical History Past Obstetrical History #1: Past Obstetrical History: Primgravida Gestation: 41 Type of Delivery: Spontaneous Vaginal Del. (01/1999) Sex of : Female (7 lbs 9 oz) Complications: No Past Obstetrical History #2: Past Obstetrical History: Multigravida Gestation: 40 Type of Delivery: Spontaneous Vaginal Del. (08/2000) Sex of Infant: Male (5 lbs 10 oz) Complications: Yes (oligohydramnios) Past Obstetrical History #3: Past Obstetrical History: Multigravida Gestation: 36.3 Type of Delivery: Spontaneous Vaginal Del. (06/2005) Sex of : Male (5 lbs 9 oz) Complications: Yes (IUGR ) Past Obstetrical History #4: Past Obstetrical History: Multigravida Gestation: 39 Type of Delivery: Spontaneous Vaginal Del. (09/2006) Sex of : Male (6 lbs 9 oz) Complications: No Past Obstetrical History #5: Past Obstetrical History: Multigravida Gestation: 40 Type of Delivery: Spontaneous Vaginal Del. (06/2010) Sex of : Male (8 lbs 2 oz) Complications: No Past Obstetrical History #6: Past Obstetrical History: Multigravida Gestation: 35.3 Type of Delivery: Spontaneous Vaginal Del. (12/2015) Sex of : Male (3 lbs 8 oz) Complications: Yes (stillbirth related to placental abruption and preeclampsia) Past Obstetrical History #7: Past Obstetrical History: Multigravida Date of Delivery: Jun 04, 2018 Gestation: 33.6 Type of Delivery: Spontaneous Vaginal Del. Sex of Infant: Male (4 lbs 12 oz) Complications: Yes (PPROM, GHTN) LEATHER LACER History: Human papillomavirus(HPV) Past Medical History Medical History Narcolepsy Surgical History: Gallbladder Family History Significant Family History: Cancer, Diabetes, Heart disease, Hypertension Social History Marital Status: Single Family situation: Spouse/partner home Psychosocial History: Anxiety * Smoker: current smoker Alcohol: Denies Drugs: denies Allergies Coded Allergies: ENVIROMENTAL (Verified Allergy, Unknown, 12/31/16) Medications Scheduled Aspirin (Aspir 81) 81 Mg Tablet.dr, 1 TAB PO DAILY for pain Vit,Calc76/Iron/Folic (Pnv 29-1 Tablet) 1 Each Tablet, 1 TAB PO DAILY Physical Examination Physical Examination GENERAL: Alert and oriented times three. Poor dental health. ABDOMEN: Gravid and non-tender to touch. Soft to palpation. FETUS: Is vertex (VTX) by sterile vaginal examination (SVE). HEART RATE: Regular rate and rhythm. LUNGS: Clear to auscultation (CTA) bilaterally. No use of accessory muscles. EXTREMITIES: No edema. No clonus. Deep tendon reflexes (DTRs) +2 PERINEUM: SSE: copious amount of clear fluid in the vaginal canal with open os and hair visualized. Laboratory Data [facility] Laboratory Tests 2 11/27/19 17:31: Serology Scanned Report Hepatitis B Testing Pertinent Laboratoy Data Blood Type: A+ RBC Antibody Screen: Negative HIV: Negative Hepatitis B: Negative Hepatitis C: Negative Rapid Plasma Reagin: Nonreactive Rubella: Immune Chlamydia/Gonorrhea: Negative Group B Streptococcus: Negative Glucose Tolerance Test: 131 Anatomy Ultrasound Ultrasound Date: Nov 20, 2019 Placenta Location: Posterior Normal Anatomy: Yes Placenta Previa: No Estimated Weight (grams): 2269 Vaginal Examination Dilation: 5 cm Effacement: other (75%) Station: -3 Cervical Consistency: Soft Cervical Position: Anterior Presentation: Cephalic presentation Position: Vertex (occiput) Assessment Heart Rate (FHR): 135 Variability: Moderate Accelerations: Positive Decelerations: None Tocometer Contractions: Yes Frequency: irregular Multi-drug resistant Organism: No history of MDRO Assessment/Plan Assessment IUP at 36.6 weeks gestation PROM GBS negative Category I FHR tracing Advanced maternal age Plan Admit to L&D for premature rupture of membranes at 36.6 weeks gestation. OOB ad vinh. Diet: clear liquid diet. Patient may order a regular diet to eat after delivery. . Group B Streptococcus (GBS) negative. No prophylactic treatment needed. Labs and intravenous (IV) per unit protocol. Anesthesia consult per patient's request. Lactated Ringers (LR): Bolus 800 mL prior to epidural, then at 125 mL/hr. Anticipate active labor as patient is already 5 cm and ruptured. Consider IV Pitocin at midnight if not delivered by that time. C-S as appropriate. MARTINEZ JEAN CNM Nov 27, 2019 17:38
[2019-11-27 18:22] VITALS: BP 109/64
[2019-11-27 18:53] LABS: HEMATOCRIT 32.7 % (36.0-47.0); HEMOGLOBIN 11.2 g/dl (12.0-15.5); MEAN CORPUSCULAR HEMOGLOBIN 31.3 pg (27.0-33.0); MEAN CORPUSCULAR HGB CONC 34.3 g/dl (32.0-36.5); MEAN CORPUSCULAR VOLUME 91.3 fl (80.0-96.0); PLATELET COUNT, AUTOMATED 224 10^3/uL (150-450); RED BLOOD COUNT 3.58 10^6/uL (4.00-5.40); WHITE BLOOD COUNT 15.5 10^3/uL (4.0-10.0)
--- NOTE | 2019-11-27 21:24 | IPNPDOC ---
Obstetrical Progress Note Date of Service Nov 27, 2019 Subjective Patient reports she only feels a few contractions. Objective Vital Signs Date Time Temp Pulse Resp B/P (MAP) Pulse Ox O2 Delivery O2 Flow Rate FiO2 11/27/19 18:22 97.8 77 18 109/64 (79) Assessment Heart Rate (FHR): 145 Variability: Moderate Accelerations: Positive Decelerations: None Heart Rate Tracing: Category I Tocometer Contractions: Yes Frequency: irregular Assessment and Plan Age: 39 Status: Reassuring Group B Streptococcus: Negative Additional Comments After examining patient the head was not able to be felt on vaginal exam ination, which was easily accessible and visually seen with SVE and SSE. Bedside ultrasound shows fetus is now transverse. Dr. Hdz notified. His recommendation is either a primary section or an attempt at and ECV due to this being patient's 8th delivery. Reviewed options with patient including risks, benefits and alternatives. She desires to try an ECV first. Reviewed r ecommendation for epidural prior to ECV. Anesthesia notified. MARTINEZ JEAN CNM Nov 27, 2019 21:24
[2019-11-27] MEDS ORDERED: FENTANYL 2MCG/ML ROPIVACAINE 0.2% IN 0.9% NACL 100ML IVBAG As Ordered ONE (21:34)
[2019-11-27] MEDS ORDERED: BICITRA 30ML SOLN UDC As Ordered ONE (22:07)
[2019-11-27] MEDS ORDERED: ceFAZolin 2 GM/D5W 50 ML IV BAG (J0690 PER 500MG) As Ordered ONE (22:07)
[2019-11-27] MEDS ORDERED: ceFAZolin SOD 2 GM in IV 1 EA IV ONE (22:15)
[2019-11-27] MEDS ORDERED: BICITRA 30ML SOLN UDC PO ONE (22:15)
--- NOTE | 2019-11-27 22:33 | IPNPDOC ---
Text Note Date of Service The patient was seen on 11/27/19. NOTE Patient has decided to decline the ECV after discussing it further and discu ssing it with her mother and wants to do a primary section with a tubal ligation. Risks, benefits, and alternatives reviewed with patient. Dr. Hdz notified of plan of care. Anesthesia and neonatology notified of change in plan. VS,Fishbone, I+O VS, Fishbone, I+O Laboratory Tests 11/27/19 18:00 Vital Signs Date Time Temp Pulse Resp B/P (MAP) Pulse Ox O2 Delivery O2 Flow Rate FiO2 11/27/19 18:22 97.8 77 18 109/64 (79) MARTINEZ JEAN CNM Nov 27, 2019 22:33
[2019-11-27] MEDS ORDERED: diphenhydrAMINE 50MG/ML VIAL (J1200) IV PRN (22:46)
[2019-11-27] MEDS ORDERED: NALOXONE INJ 0.4MG/1ML VIAL (J2310 PER 1MG) IV PRN ×2 (22:46)
[2019-11-27] MEDS ORDERED: NALBUPHINE HCL 10 MG/ML AMP (J2300) IV PRN (22:46)
[2019-11-27] MEDS ORDERED: METOCLOPRAMIDE INJ 10MG/2ML VIAL (J2765 PER 1) IV PRN (22:46)
[2019-11-27] MEDS ORDERED: ONDANSETRON 4MG/2ML VIAL IV PRN ×2 (22:46→23:45)
[2019-11-27] MEDS ORDERED: MORPHINE PRES-FREE INJ 10 MG/10 ML VIAL (J2274) As Ordered ONE (22:53)
[2019-11-27] MEDS ORDERED: OXYTOCIN INJ 10 UNITS/ML VIAL (J2590) As Ordered ONE (22:53)
[2019-11-27] MEDS ORDERED: OXYTOCIN DRIP 30 UNITS in IV 1 EA IV SCH (23:42)
[2019-11-27] MEDS ORDERED: MEPERIDINE INJ 25 MG/ML VIAL (J2175) IV PRN (23:45)
[2019-11-27] MEDS ORDERED: MOM 30ML SUSPENSION UDC PO PRN (23:45)
[2019-11-27] MEDS ORDERED: KETOROLAC 30 MG/ML 1ML VIAL IV PRN (23:45)
[2019-11-27] MEDS ORDERED: fentaNYL 100 MCG/2 ML INJECTION (J3010) IV PRN (23:45)
[2019-11-27] MEDS ORDERED: PERCOCET 5MG/325MG TAB PO PRN ×2 (23:45)
[2019-11-27] MEDS ORDERED: RHOGAM 300 MCG (1500 IU) INJ (J2790) IM SCH (23:45)
[2019-11-27] MEDS ORDERED: MEASLES,MUMPS,RUBELLA VACCINE INJ (MMR-II) (90707) SC SCH (23:45)
[2019-11-27 23:51] LABS: CORD GAS PCO2 A 37.7 mmHg; CORD GAS PH A 7.377 UNITS
[2019-11-27 23:52] LABS: CORD GAS HCO3 A 21.7 MEQ/L; CORD GAS O2 SAT A 86.4 %; CORD GAS PO2 A 38.6 mmHg; CORD GAS SBC A 21.7 MEQ/L; CORD GAS TCO2 A 22.8 MEQ/L
[2019-11-27 23:53] LABS: CORD GAS PCO2 V 56.9 mmHg; CORD GAS PH V 7.28 UNITS
[2019-11-27 23:54] LABS: CORD GAS ABE V -1.5; CORD GAS HCO3 V 26.1 MEQ/L; CORD GAS PO2 V 21.5 mmHg; CORD GAS TCO2 V 27.9 MEQ/L
[2019-11-27 23:55] LABS: CORD GAS O2 SAT V 48.2 %; CORD GAS SBC V 22.1 MEQ/L
[2019-11-28] VITALS (10 sets, daily range): BP systolic 91–110; BP diastolic 50–64
[2019-11-28] MEDS: IBUPROFEN 800 MG TAB PO SCH ×3 (03:51→17:56)
[2019-11-28 07:18] LABS: HEMATOCRIT 35.5 % (36.0-47.0); HEMOGLOBIN 11.7 g/dl (12.0-15.5); MEAN CORPUSCULAR HEMOGLOBIN 30.7 pg (27.0-33.0); MEAN CORPUSCULAR VOLUME 93.2 fl (80.0-96.0); PLATELET COUNT, AUTOMATED 232 10^3/uL (150-450); RED BLOOD COUNT 3.81 10^6/uL (4.00-5.40); WHITE BLOOD COUNT 17.6 10^3/uL (4.0-10.0)
[2019-11-28] MEDS ORDERED: BOOSTRIX/ADACEL VACCINE (DIPHTH/PERTUSS/ACELL/TETANUS) 0.5ML SYR IM ONE (09:00)
[2019-11-28] MEDS: PRENATAL VITAMINS CHEWABLE TABLET PO SCH (09:00)
[2019-11-28] MEDS: DOCUSATE SODIUM 100 MG CAP PO SCH ×2 (09:00→19:54)
--- NOTE | 2019-11-28 09:32 | IPNPDOC ---
Progress Note Date of Service: Nov 28, 2019 Day#: 1 Progress Note SUBJECT: Katerin is a 39-year-old female who presented with PROM at 36.6 weeks gestation. She was found to be grossly ruptured and in cephalic presentation. After 2-3 hours after another vaginal exam she was found to be oblique then transverse. She was given the options for ECV or primary section. Patient decided on a primary section with a tubal ligation. Her ceballos catheter was removed. She has ambulated without difficulty. Katerin does report some nausea but has been able to tolerate oral fluids and a regular diet. She is and supplementing with formula. OBJECTIVE: VITAL SIGNS: Within normal limits, afebrile. Alert and oriented times three. Does not appear to be in any distress. Breath sounds clear to auscultation. No use of accessory muscles. Heart rate: appropriate profusion. Abdomen: Fundus firm at U. Pressure dressing is intact with no drainage present on dressing. Minimal lochia. ASSESSMENT: Day 1 postoperative from primary section with tubal ligation PLAN: 1. Continue supportive nursing care. 2. Ambulate today. 3. Once patient has voided her IV fluid may be discontinued. 4. May shower later tonight. 5. Anticipate potential discharge tomorrow. VS, I&O, 24H, [facility] Vital Signs/I&O Vital Signs Date Time Temp Pulse Resp B/P (MAP) Pulse Ox O2 Delivery O2 Flow Rate FiO2 11/28/19 05:00 97.7 69 16 101/55 (70) 92 Room Air I&O- Last 24 Hours up to 6 AM 11/28/19 05:59 Intake Total 440 ml Output Total 850 ml Balance -410 ml Laboratory Data 24H LABS Laboratory Tests 2 11/27/19 17:31: Serology Scanned Report Hepatitis B Testing 11/27/19 18:00: Nucleated Red Blood Cells % (auto) 0.0, Syphilis Serology NONREACTIVE 11/27/19 22:59: Cord Arterial Blood pH 7.377, Cord Arterial Blood PCO2 37.7, Cord Arterial Blood PO2 38.6, Cord Arterial Blood HCO3 21.7, Cord Arterial Blood Total CO2 22.8, Cord Arterial Blood Base Excess -3.0, Cord Arterial Base Excess (Standard 21.7, Cord Arterial Bld Oxygen Saturation 86.4, Cord Venous Blood pH 7.280, Cord Venous Blood PCO2 56.9, Cord Venous Blood PO2 21.5, Cord Venous Blood HCO3 26.1, Cord Venous Blood Total CO2 27.9, Cord Venous Base Excess (Actual) -1.5, Cord Venous Base Excess (Standard) 22.1, Cord Venous Blood Oxygen Saturation 48.2 11/28/19 06:10: Nucleated Red Blood Cells % (auto) 0.0 CBC/BMP Laboratory Tests 11/27/19 18:00 11/28/19 06:10 MARTINEZ JEAN CNM Nov 28, 2019 09:32
[2019-11-28] MEDS ORDERED: LR 500 ML IV ONE (17:45)
[2019-11-28] MEDS ORDERED: CALCIUM CARBONATE 500 MG CHEW U/D PO PRN (18:00)
[2019-11-29 02:00] VITALS: BP 101/52
[2019-11-29] MEDS: IBUPROFEN 800 MG TAB PO SCH ×2 (02:35→10:40)
[2019-11-29 06:00] VITALS: BP 111/56
[2019-11-29] MEDS ORDERED: INFLUENZA QUADRIVALENT PF VACCINE 0.5ML SYRINGE IM ONE (09:00)
[2019-11-29] MEDS: DOCUSATE SODIUM 100 MG CAP PO SCH (09:03)
[2019-11-29] MEDS: PRENATAL VITAMINS CHEWABLE TABLET PO SCH (09:03)
[2019-11-29 10:00] VITALS: BP 125/70
--- NOTE | 2019-11-29 10:01 | IPNPDOC ---
Progress Note Date of Service: Nov 29, 2019 Day#: 2 Progress Note POD 2 SUBJECT: Katerin is a 39yo s/p uncomplicated PLTCS with BTL at 36w6d when she presented with PROM and unstable lie that converted to breech presentation before onset of labor. Her was complicated by AMA, history of prior labor, narcolepsy, history of stillbirth at 35 weeks due to placental abruption, tobacco use, prior preeclampsia, and recently diagnosed IUGR with growth in the 7%ile. She is doing well /post-op day # 2. She has been ambulating, voiding spontaneously without issue and tolerating regular diet. Breast feeding without issue. Reports lochia is like a normal period. Pain very well controlled. She is highly desirous of discharge today. Denies f/c/n/v/CP/SOB. OBJECTIVE: VITAL SIGNS: Within normal limits, afebrile. Alert and oriented times three. Abdomen: Fundus firm at U-2. Soft, appropriately tender to palpation. Pfannenstiel incision is clean/dry/intact with overlying steri strips Extremities: no edema of BLE, no pain with palpation of calves Labs: -pre-op H/H: 11.2/32.7 -post-op H/H: 11.7/35.5 ASSESSMENT: Katerin is a 39yo s/p uncomplicated PLTCS with BTL at 36w6d when she presented with PROM and unstable lie that converted to breech presentation before onset of labor, doing well POD 2. Vitals within normal limits, afebrile, hemodynamically stable with no evidence of infection. PLAN: 1. Discharge to home today. 2. Percocet and Motrin for pain. Regular diet. 3. Encouraged breast feeding and ambulation and use of IS 4. Remove steri strips in 7 days, keep incision clean and dry. Ok to shower pat dry after. Vaginal rest/no heavy lifting 6 weeks. 5. Incision check visit in 2 weeks in clinic. 6. Discussed return precautions at length. Shahnaz Weaver MD VS, I&O, 24H, [facility] Vital Signs/I&O Vital Signs Date Time Temp Pulse Resp B/P (MAP) Pulse Ox O2 Delivery O2 Flow Rate FiO2 11/29/19 06:00 97.6 82 18 111/56 (74) 97 Room Air I&O- Last 24 Hours up to 6 AM 11/29/19 06:00 Output Total 1255 ml Balance -1255 ml Shahnaz Weaver MD Nov 29, 2019 10:01
--- NOTE | 2019-11-29 10:06 | DS.PDOC ---
Discharge Summary General Date of Admission Nov 27, 2019 at 17:18 Date of Discharge Nov 29, 2019 Discharge Summary PROCEDURES PERFORMED DURING STAY: primary low transverse section and bilateral tubal ligation ADMITTING DIAGNOSES: 1. PPROM at 36w6d, unstable lie DISCHARGE DIAGNOSES: 1. PPROM at 36w6d, unstable lie that converted to breech presentation prior to onset of labor COMPLICATIONS/CHIEF COMPLAINT: LABOR. HISTORY OF PRESENT ILLNESS/HOSPITAL COURSE: Katerin is a 39yo s/p uncomplicated PLTCS with BTL at 36w6d when she presented with PROM and unstable lie that converted to breech presentation before onset of labor, doing well POD 2. At time of discharge, vitals within normal limits, afebrile, hemodynamically stable with no evidence of infection. Her was complicated by AMA, history of prior labor, narcolepsy, history of stillbirth at 35 weeks due to placental abruption, tobacco use, prior preeclampsia, and recently diagnosed IUGR with growth in the 7%ile. DISCHARGE MEDICATIONS: Please see below. ALLERGIES: Please see below. PHYSICAL EXAMINATION ON DISCHARGE: VITAL SIGNS: Within normal limits, afebrile. Alert and oriented times three. Abdomen: Fundus firm at U-2. Soft, appropriately tender to palpation. Pfannenstiel incision is clean/dry/intact with overlying steri strips Extremities: no edema of BLE, no pain with palpation of calves LABORATORY DATA: Please see below. -pre-op H/H: 11.2/32.7 -post-op H/H: 11.7/35.5 DISPOSITION: home DISCHARGE PLAN/INSTRUCTIONS: 1. Discharge to home today. 2. Percocet and Motrin for pain. Regular diet. 3. Encouraged breast feeding and ambulation and use of IS 4. Remove steri strips in 7 days, keep incision clean and dry. Ok to shower pat dry after. Vaginal rest/no heavy lifting 6 weeks. 5. Incision check visit in 2 weeks in clinic. 6. Discussed return precautions at length. DISCHARGE CONDITION: Stable TIME SPENT ON DISCHARGE: Greater than 20 minutes. Shahnaz Weaver MD Vital Signs/I&Os Vital Signs Date Time Temp Pulse Resp B/P (MAP) Pulse Ox O2 Delivery O2 Flow Rate FiO2 11/29/19 06:00 97.6 82 18 111/56 (74) 97 Room Air I&O- Last 24 Hours up to 6 AM 11/29/19 06:00 Output Total 1255 ml Balance -1255 ml Discharge Medications Scheduled Aspirin (Aspir 81) 81 Mg Tablet.dr, 1 TAB PO DAILY for pain, (Reported) Vit,Calc76/Iron/Folic (Pnv 29-1 Tablet) 1 Each Tablet, 1 TAB PO DAILY, (Reported) Allergies Coded Allergies: ENVIROMENTAL (Verified Allergy, Unknown, 12/31/16) Shahnaz Weaver MD Nov 29, 2019 10:06
[2019-11-29] MEDS ORDERED: PERCOCET PO (10:35)
[2019-11-29] MEDS ORDERED: DOCU100C16 PO (10:35)
[2019-11-29] MEDS ORDERED: IBUP80TA PO (10:35)
[2019-11-29] MEDS ORDERED: BOOSTRIX/ADACEL VACCINE (DIPHTH/PERTUSS/ACELL/TETANUS) 0.5ML SYR IM ONE (11:00)
--- NOTE | 2019-12-18 13:49 | RO ---
DATE OF OPERATION: 11/27/2019 BRIEF HISTORY: Marcella is a 39-year-old female who presented at 36-6/7 weeks gestation with spontaneous rupture of membranes and labor. She was found to have a transverse presentation and after extensive counseling, the patient decided to proceed with a primary section. The patient was also a multiparous young lady who desired permanent tubal sterilization. PREOPERATIVE DIAGNOSES: * Intrauterine at 36-6/7 week's gestation with spontaneous rupture of membranes and labor. * Transverse presentation, desired primary section. * Desires permanent tubal sterilization. POSTOPERATIVE DIAGNOSES: * Intrauterine at 36-6/7 week's gestation with spontaneous rupture of membranes and labor. * Transverse presentation, desired primary section. * Desires permanent tubal sterilization. PROCEDURES: * Primary low transverse section. * Bilateral salpingectomies. ANESTHESIA: Spinal. SURGEON: Claudio Hdz DO TENSION WORKER: Nisreen Denton CNM COMPLICATIONS: None. ESTIMATED BLOOD LOSS: 500 mL. FINDINGS: Live female in lucia breech position. 8/8 with weight 5 pounds 4 ounces. Normal-appearing tubes and ovaries. PROCEDURE: After obtaining informed consent, the patient was taken to the operating room where spinal anesthetic was found to be adequate. She was then draped and prepped in the usual sterile fashion in a supine position. At this point, a Pfannenstiel incision was made. This was carried down to the fascia. The fascia was incised in midline fashion and carried through laterally. The superior aspect was fascia was then grasped with through the scope, clamped and tented off and dissected off the rectus muscle sharply. The inferior aspect was dissected off in its normal fashion. Rectus muscle severed in midline fashion. Peritoneum was identified and peritoneal cavity was entered bluntly. Superior and inferior dissection of the peritoneum was then done with good visualization of the bladder. At this point, a Mobius skin retractor was placed. A low transverse uterine incision was made. The was delivered in atraumatic fashion with mild bulb suction. Cord doubly clamped and cut, and handed over to the awaiting warmer. Cord blood and cord gas was sent. Placenta removed manually. Uterus cleared of all clots and debris, and the uterine incision was then repaired in two separate layers of 0 Vicryl sutures. All superficial bleeders coagulated. After closure of the uterus, attention turned to the fallopian tube where the fimbriated ends were identified, and both ends were then clamped with two large Nadine's. Using the Bovie, the tubes were removed entirely and the area was then suture ligated using 3-0 chromic suture. The opposite side was done in a similar fashion. Pelvis completely irrigated with normal saline. Attention turned to the peritoneum which was closed using 2-0 chromic in a running fashion. The fascia closed in two separate segments with 0 Vicryl sutures and the skin was reapproximated in subcuticular fashion using 3-0 Vicryl on a Amadeo. Steri-Strips placed. The patient tolerated the procedure well. She was then transferred to the recovery room in stable condition. PEPE
--- NOTE | 2019-12-20 10:02 | RO ---
DATE OF OPERATION: 11/27/2019 BRIEF HISTORY: Marcella is a 39-year-old female who presented at 36-6/7 weeks gestation with spontaneous rupture of membranes and labor. She was found to have a transverse presentation and after extensive counseling, the patient decided to proceed with a primary section. The patient was also a multiparous young lady who desired permanent tubal sterilization. PREOPERATIVE DIAGNOSES: 1. Intrauterine at 36-6/7 week's gestation with spontaneous rupture of membranes and labor. 2. Transverse presentation, desired primary section. 3. Desires permanent tubal sterilization. POSTOPERATIVE DIAGNOSES: 1. Intrauterine at 36-6/7 week's gestation with spontaneous rupture of membranes and labor. 2. Transverse presentation, desired primary section. 3. Desires permanent tubal sterilization. PROCEDURES: 1. Primary low transverse section. 2. Bilateral salpingectomies. ANESTHESIA: Spinal. SURGEON: Claudio Hdz DO TREATMENT SUPERVISOR: Nisreen Denton CNM COMPLICATIONS: None. ESTIMATED BLOOD LOSS: 500 mL. FINDINGS: Live female in lucia breech position. 8/8 with weight 5 pounds 4 ounces. Normal-appearing tubes and ovaries. DESCRIPTION OF PROCEDURE: After obtaining informed consent, the patient was taken to the operating room where spinal anesthetic was found to be adequate. She was then draped and prepped in the usual sterile fashion in a supine position. At this point, a Pfannenstiel incision was made. This was carried down to the fascia. The fascia was incised in midline fashion and carried through laterally. The superior aspect was fascia was then grasped with through the scope, clamped and tented off and dissected off the rectus muscle sharply. The inferior aspect was dissected off in its normal fashion. Rectus muscle severed in midline fashion. Peritoneum was identified and peritoneal cavity was entered bluntly. Superior and inferior dissection of the peritoneum was then done with good visualization of the bladder. At this point, a Mobius skin retractor was placed. A low transverse uterine incision was made. The infant was delivered in atraumatic fashion with mild bulb suction. Cord doubly clamped and cut, and infant handed over to the awaiting warmer. Cord blood and cord gas was sent. Placenta removed manually. Uterus cleared of all clots and debris, and the uterine incision was then repaired in two separate layers of 0 Vicryl sutures. All superficial bleeders coagulated. After closure of the uterus, attention turned to the fallopian tube where the fimbriated ends were identified, and both ends were then clamped with two large Nadine's. Using the Bovie, the tubes were removed entirely and the area was then suture ligated using 3-0 chromic suture. The opposite side was done in a similar fashion. Pelvis completely irrigated with normal saline. Attention turned to the peritoneum which was closed using 2- 0 chromic in a running fashion. The fascia closed in two separate segments with 0 Vicryl sutures and the skin was reapproximated in subcuticular fashion using 3-0 Vicryl on a Amadeo. Steri-Strips placed. The patient tolerated the procedure well. She was then transferred to the recovery room in stable condition. PEPE
== END 2019-11-29 11:30 | disposition home or self-care (01) | DRG 540 ==
LOC: M LDO 16:33 → M LDI 17:18 → M OBS 11-28 01:15
PROVIDERS: ADMIT Advanced Practice Midwife; ATTEND Advanced Practice Midwife
PROC: 0UB70ZZ Excision of Bilateral Fallopian Tubes, Open Approach (ICD-10-PCS; 2019-11-27)
PROC: 10D00Z1 Extraction of Products of Conception, Low, Open Approach (ICD-10-PCS; principal; 2019-11-27 22:10)
DX: O60.14X0 Preterm labor third trimester with preterm delivery third trimester, not applicable or unspecified (principal); Z37.0 Single live birth; Z3A.36 36 weeks gestation of pregnancy; O09.523 Supervision of elderly multigravida, third trimester; F17.200 Nicotine dependence, unspecified, uncomplicated; O99.334 Smoking (tobacco) complicating childbirth; Z87.51 Personal history of pre-term labor; O36.5930 Maternal care for other known or suspected poor fetal growth, third trimester, not applicable or unspecified; Z30.2 Encounter for sterilization; O42.013 Preterm premature rupture of membranes, onset of labor within 24 hours of rupture, third trimester

== ENCOUNTER → 2019-11-27 | Outpatient (CLI) | payer MEDICAID ==
--- NOTE | 2019-12-25 09:17 | REP ---
LIMITED OBSTETRICAL ULTRASOUND FOR BIOPHYSICAL PROFILE CLINICAL: History of stillborn for biophysical profile. TECHNIQUE: Transabdominal obstetrical ultrasound with color Doppler evaluation. FINDINGS: Ultrasound examination demonstrates single live intrauterine in cephalic presentation. motion was identified by technologist. heart rate equals 161 beats per minute. Biophysical profile score 8/8. Placenta noted posteriorly and grade 2 without evidence for placenta previa or abruption. Amniotic fluid volume is normal. ALY equals 12.8 cm. Cervix measures 2.9 cm in length and appears closed. Umbilical artery S/D ratio 2.7. IMPRESSION: Single live intrauterine in cephalic presentation. Biophysical profile score equals 8/8. Amniotic fluid volume normal. MTDD
== END ==
LOC: M WHC 09:33
PROVIDERS: ATTEND Obstetrics & Gynecology
DX: O09.299 Supervision of pregnancy with other poor reproductive or obstetric history, unspecified trimester (principal); Z3A.00 Weeks of gestation of pregnancy not specified

== ENCOUNTER → 2022-01-19 | Outpatient (CLI) | payer MEDICAID, OTHER ==
[~2022-01-19] MED LIST changes: -CEFD1CAP8 PO; +CEFD300C41 PO; +DOCU100C16 PO; +IBUP80TA PO; +PERCOCET PO; +PNV1TAB6 PO
[2022-01-19 17:41] LABS: BASO # 0.1 10^3/uL (0.0-0.2); BASO % 0.6 % (0.0-1.0); EOS # 0.5 10^3/uL (0.0-0.5); EOS % 4.4 % (0.0-3.0); HEMATOCRIT 43.6 % (36.0-47.0); HEMOGLOBIN 14.2 g/dl (12.0-15.5); LYMPH # 4.1 10^3/uL (1.5-5.0); LYMPH % 37.5 % (24.0-44.0); MEAN CORPUSCULAR HEMOGLOBIN 29.5 pg (27.0-33.0); MEAN CORPUSCULAR HGB CONC 32.6 g/dl (32.0-36.5); MEAN CORPUSCULAR VOLUME 90.6 fl (80.0-96.0); MONO # 0.6 10^3/uL (0.0-0.8); MONO % 5.2 % (2.0-8.0); NEUTROPHILS # 5.7 10^3/uL (1.5-8.5); NEUTROPHILS % 51.9 % (36.0-66.0); PLATELET COUNT, AUTOMATED 306 10^3/uL (150-450); RED BLOOD COUNT 4.81 10^6/uL (4.00-5.40)
[2022-01-19 18:25] LABS: ALBUMIN 3.8 GM/DL (3.2-5.2); ALT/SGPT 22 U/L (12-78); BILIRUBIN,TOTAL 0.4 MG/DL (0.2-1.0); BLOOD UREA NITROGEN 9 MG/DL (7-18); C REACTIVE PROTEIN QUANTITATIV 0.34 MG/DL (0.00-0.30); CARBON DIOXIDE LEVEL 26 MEQ/L (21-32); CHLORIDE LEVEL 106 MEQ/L (98-107); CHOLESTEROL LEVEL 149 MG/DL (<200); CHOLESTEROL RISK RATIO 3.465 (<5); GLOMERULAR FILTRATION RATE > 60.0 (>58); GLUCOSE, FASTING 87 MG/DL (70-100); HDL CHOLESTEROL 43 MG/DL (>40); LDL CHOLESTEROL 87 MG/DL (<100); NON-HDL-C 106 MG/DL; POTASSIUM SERUM 4.3 MEQ/L (3.5-5.1); SODIUM LEVEL 140 MEQ/L (136-145); THYROID STIMULATING HORMONE 0.725 uIU/ML (0.358-3.740); TOTAL PROTEIN 7.1 GM/DL (6.4-8.2); TRIGLYCERIDES LEVEL 96 MG/DL (<150)
[2022-01-19 18:57] LABS: APPEARANCE, URINE MANUAL HAZY (CLEAR); COLOR, URINE MANUAL YELLOW (YELLOW)
[2022-01-19 19:00] LABS: BILIRUBIN, URINE MANUAL NEGATIVE (NEGATIVE); BLOOD URINE MANUAL NEGATIVE (NEGATIVE); GLUCOSE, URINE (UA) MANUAL NEGATIVE (NEGATIVE); KETONE, URINE MANUAL NEGATIVE (NEGATIVE); LEUKOCYTE ESTERASE, URINE MAN TRACE (NEGATIVE); NITRITE, URINE MANUAL POSITIVE (NEGATIVE); PROTEIN, URINE MANUAL NEGATIVE (NEGATIVE); UROBILINOGEN, URINE MANUAL NORMAL (NORMAL)
[2022-01-19 19:05] LABS: TOTAL 25(OH) VITAMIN D 18.8 NG/ML (30.0-100.0)
[2022-01-19 19:06] LABS: VITAMIN B12 LEVEL 684 PG/ML (247-911)
[2022-01-19 20:13] LABS: BACTERIA, URINE LARGE AMOUNT; HYALINE CAST, URINE NONE SEEN /lpf (0-1); RBC, URINE NONE SEEN /hpf (0-3); SQUAMOUS EPITHELIAL CELL URINE MOD AMOUNT /hpf (SMALL AMT)
== END ==
LOC: M PLALAB 15:10
PROVIDERS: ATTEND Family Medicine
DX: I73.00 Raynaud's syndrome without gangrene (principal); R20.2 Paresthesia of skin

== ENCOUNTER → 2022-03-05 | Outpatient (CLI) | payer OTHER, MEDICAID, MEDICARE | LOC: M SOG 08:12 | PROVIDERS: ATTEND Orthopaedic Surgery | DX: M25.511 Pain in right shoulder (principal); M54.2 Cervicalgia; M25.78 Osteophyte, vertebrae ==

== ENCOUNTER → 2022-04-16 | Outpatient (CLI) | payer OTHER | LOC: M PLAIMG 06:39 | PROVIDERS: ATTEND Orthopaedic Surgery | DX: M47.22 Other spondylosis with radiculopathy, cervical region (principal); M50.123 Cervical disc disorder at C6-C7 level with radiculopathy; M48.02 Spinal stenosis, cervical region; M25.78 Osteophyte, vertebrae ==

== ENCOUNTER → 2022-09-15 | Outpatient (CLI) | payer OTHER, MEDICAID | LOC: M PLAIMG 08:27 | PROVIDERS: ATTEND Physician Assistant | DX: M76.60 Achilles tendinitis, unspecified leg (principal); M25.572 Pain in left ankle and joints of left foot ==

== ENCOUNTER → 2022-11-25 | Outpatient (REF) | payer OTHER, MEDICAID | LOC: M SFHCPLAZ 17:37 | PROVIDERS: ATTEND Family Medicine | DX: Z12.4 Encounter for screening for malignant neoplasm of cervix (principal) ==

== ENCOUNTER → 2023-01-21 | Outpatient (CLI) | payer OTHER ==
[~2023-01-21] MED LIST changes: -CEFD300C41 PO; +CEFD300C42 PO
== END ==
LOC: M RAD 08:03
PROVIDERS: ATTEND Orthopaedic Surgery
DX: M47.22 Other spondylosis with radiculopathy, cervical region (principal); M50.222 Other cervical disc displacement at C5-C6 level

== ENCOUNTER → 2023-03-15 | Outpatient (CLI) | payer OTHER ==
[~2023-03-15] MED LIST changes: +CEFD1CAP9 PO; -CEFD300C42 PO
== END ==
LOC: M SOG 08:02
PROVIDERS: ATTEND Orthopaedic Surgery
DX: M50.122 Cervical disc disorder at C5-C6 level with radiculopathy (principal); Z53.9 Procedure and treatment not carried out, unspecified reason

== ENCOUNTER → 2023-04-05 | Outpatient (CLI) | payer OTHER | LOC: M SOG 07:52 | PROVIDERS: ATTEND Orthopaedic Surgery | DX: M50.122 Cervical disc disorder at C5-C6 level with radiculopathy (principal); Z53.9 Procedure and treatment not carried out, unspecified reason ==

== ENCOUNTER → 2023-04-26 | Outpatient (CLI) | payer OTHER | LOC: M SOG 07:54 | PROVIDERS: ATTEND Orthopaedic Surgery | DX: M50.122 Cervical disc disorder at C5-C6 level with radiculopathy (principal) ==

== ENCOUNTER → 2024-11-22 | Outpatient (CLI) | payer OTHER ==
[~2024-11-22] MED LIST changes: -IBUP-1022 PO; +IBUP600T42 PO
[2024-11-22 17:26] LABS: ALT/SGPT 22.0 U/L (7.0-40); AST/SGOT 15.0 U/L (<34); CALCIUM LEVEL 9.8 MG/DL (8.5-10.1); CARBON DIOXIDE LEVEL 28.0 MMOL/L (20-31); CHLORIDE LEVEL 110.0 MMOL/L (98-107); CHOLESTEROL LEVEL 180.0 MG/DL (<200); CHOLESTEROL RISK RATIO 4.1 (<5); CREATININE FOR GFR 0.93 MG/DL (0.55-1.30); GLOMERULAR FILTRATION RATE 78.7 (>58); LDL CHOLESTEROL 113.9 MG/DL (<100); NON-HDL-C 136.1 MG/DL; POTASSIUM SERUM 4.4 MMOL/L (3.5-5.1); SODIUM LEVEL 144.0 MMOL/L (136-145); TRIGLYCERIDES LEVEL 111.0 MG/DL (<150)
[2024-11-22 17:28] LABS: TOTAL 25(OH) VITAMIN D 27.5 NG/ML (20.0-100.0)
== END ==
LOC: M PLALAB 16:25
PROVIDERS: ATTEND Family Medicine
DX: Z13.6 Encounter for screening for cardiovascular disorders (principal); E55.9 Vitamin D deficiency, unspecified